=== PATIENT | female | born 1945 | race Caucasian/White ===

== ENCOUNTER 2023-11-02 01:25 | Day surgery (SDC) | payer MEDICARE, SELFPAY ==
[2023-10-20 10:26] VITALS: BMI 24.9
--- NOTE | 2023-10-29 14:32 | SUR.PREOP ---
Patient called regarding upcoming procedure. message left on patient's voicemail regarding preop instructions, appointment times, and procedure prep.
[2023-11-02 07:09] VITALS: BP 156/91; PULSE 86; RESP 18; TEMP 36.7; O2SAT 100
[2023-11-02] MEDS: LACTATED RINGERS 1,000 ML 150 ML IV CONT (07:19)
--- NOTE | 2023-11-02 08:23 | P.PNAN_ITS ---
Anes - Initial Pre Proc Eval Procedure: Operation Date: 11/02/23 08:30 Proposed Procedures p Colonoscopy - Bj Alfonso MD Date/Time: 11/02/23 08:23 Surgeon: Bj Alfonso MD Pre Op Diagnosis: Hx colon polyps Patient Data Age: 78 Gender: F Height: 1.6 m Weight: 63 kg Last Vital Signs Temp 98.0 F 11/02/23 07:09 Pulse 86 11/02/23 07:09 Resp 18 11/02/23 07:09 BP 156/91 H 11/02/23 07:09 Pulse Ox 100 11/02/23 07:09 O2 Del Method Room Air 11/02/23 07:09 Allergies Allergy/AdvReac Type Severity Reaction Status Date / Time No Known Allergies Allergy Verified 11/02/23 07:06 Home Medications Medication Instructions Recorded Confirmed Type atorvastatin 20 mg tablet 20 mg PO DAILY 10/20/23 10/20/23 History levothyroxine 25 mcg tablet 25 mcg PO DAILY 10/20/23 10/20/23 History sertraline 100 mg tablet 100 mg PO DAILY 10/20/23 10/20/23 History Patient hx anesthesia problems: none Family hx anesthesia problems: none Results Review: All pre-operative results and documents have been reviewed as part of the pre- operative evaluation. [facility] Social History Social History Smoking status: Never smoker Alcohol intake: current Drinks per week: 14 Substance use type: does not use Living arrangements: other Additional living arrangements comments: with sp Anes - Eval Final PreProcedure Day of Procedure 11/02/23 08:23 Patient weight: normal Heart: regular rate and rhythm Lungs: clear to auscultation Airway: Mallampati scale class II Neurological: alert and oriented Last oral intake: >/= 8 hours ASA classification: II Emergent: no Anesthetic plan: proceed Anesthesia type and monitoring: general GIVS and standard monitoring Results Review: All pre-operative results and documents have been reviewed as part of the pre- operative evaluation. Informed Consent: The patient's anesthetic plan and its attendant risks and benefits were discussed with the patient/family/POA. Questions were solicited and answers provided to the satisfaction of the patient/family/POA.
--- NOTE | 2023-11-02 08:33 | PM.HPGS ---
History of Present Illness History of Present Illness Consent: Risks, benefits, and alternatives have been discussed and questions answered. Patient agrees to proceed with procedure. Chief complaint: Hx colon polyps Narrative: Mery Pollock is a 78 year old female with history colon polyps Review of Systems Constitutional: Constitutional: Denies headache(s) and Denies weakness Eyes: Eyes: Denies blurry vision ENT: Reports Normal hearing present, Denies headache(s) and Denies neck pain Cardiovascular: Cardiovascular: Denies chest pain and Denies dyspnea Respiratory: Respiratory: Denies dyspnea Gastrointestinal: Gastrointestinal: Reports no additional gastrointestinal complaints Genitourinary: Genitourinary: Denies dysuria Musculoskeletal: Musculoskeletal: Denies neck pain Integumentary/Breasts: Skin/Breast: Denies dry skin Neurologic: Reports Normal hearing present, Denies headache(s) and Denies weakness Psychiatric: Psychiatric: Denies anxiety Endocrine: Endocrine: Denies change in body appearance Hematologic/Lymphatic: Hematologic/Lymphatic: Denies easy bleeding Allergic/Immunologic: Allergic/Immunologic: Denies urticaria PMF Past Medical History Medical History (Updated 11/02/23 @ 08:34 by Bj Alfonso MD) History of colon polyps Social History Social History Smoking status: Never smoker Alcohol intake: current Drinks per week: 14 Substance use type: does not use Living arrangements: other Additional living arrangements comments: with sp Meds Home Medications and Allergies Home Medications Medication Instructions Recorded Confirmed Type atorvastatin 20 mg tablet 20 mg PO DAILY 10/20/23 10/20/23 History levothyroxine 25 mcg tablet 25 mcg PO DAILY 10/20/23 10/20/23 History sertraline 100 mg tablet 100 mg PO DAILY 10/20/23 10/20/23 History Allergies Allergy/AdvReac Type Severity Reaction Status Date / Time No Known Allergies Allergy Verified 11/02/23 07:06 Vital Signs Vital Signs - 24 hr 11/02/23 07:09 Temperature 98.0 F Pulse Rate 86 Respiratory Rate 18 Blood Pressure 156/91 H Pulse Oximetry 100 Oxygen Delivery Room Air Exam Const: General: comfortable and no acute distress HENMT: Face/Nose/Sinus: Normal nares present Eyes: General: appearance normal, both eyes and all related structures Neck: Neck: no JVD Resp: Auscultation: clear to auscultation bilaterally Cardio: Rate: regular rate Rhythm: regular rhythm GI: Inspection: non-distended GI Palp: Yes Soft to palpation Skin: General skin exam: normal color Neuro: General: gait normal Speech: normal speech Extrem: General: normal to inspection Psych: Mental Status: mental status grossly normal Assessment and Plan Assessment and plan (1) History of colon polyps: Code(s): Z86.010 - Personal history of colonic polyps Status: Acute Assessment and Plan: colonoscopy
[2023-11-02 08:58] VITALS: BP 103/66; PULSE 85; RESP 20; O2SAT 96
[2023-11-02 09:08] VITALS: BP 106/68; PULSE 84; RESP 20; O2SAT 100
[2023-11-02 09:18] VITALS: BP 132/78; PULSE 82; RESP 20; O2SAT 100
== END 2023-11-02 09:26 | disposition home or self-care (01) ==
PROVIDERS: PCP Family Medicine; Visit Provider Internal Medicine Gastroenterology
PROC: 0DJD8ZZ Inspection of Lower Intestinal Tract, Via Natural or Artificial Opening Endoscopic (ICD-10-PCS; CPT 45378; principal; 2023-11-02 08:30)
DX: Z12.11 Encounter for screening for malignant neoplasm of colon (principal); D12.2 Benign neoplasm of ascending colon; D12.3 Benign neoplasm of transverse colon; D12.5 Benign neoplasm of sigmoid colon; K64.8 Other hemorrhoids
CPT/HCPCS: 45385; 88305; J2704; J7120

== ENCOUNTER 2025-09-19 08:22 | Outpatient (CLI) | payer MEDICARE, SELFPAY ==
--- NOTE | ~2025-09-19 | US_ITS ---
Examination: US abdomen complete Clinical History: Dyspepsia . Comparison: None Technique: Complete abdominal sonography Findings: Liver: Normal size. Normal echotexture. No intrahepatic biliary ductal dilatation. Normal hepatopedal flow main portal vein. Common duct: 6 mm. Gallbladder: No stones. No wall thickening. No pericholecystic fluid. Spleen: Unremarkable. Pancreas: Unremarkable. Kidneys: Unremarkable. Aorta: No aneurysmal dilatation. Retrohepatic IVC: Unremarkable. IMPRESSION: 1. No acute findings. Reviewed, dictated and finalized at location R. IMPRESSION: 1. No acute findings.
== END 2025-09-19 08:23 | disposition home or self-care (01) ==
PROVIDERS: PCP Family Medicine; Visit Provider Family Medicine
DX: R10.13 Epigastric pain (principal)
CPT/HCPCS: 76700